=== PATIENT | male | born 1990 | race Hispanic/Latino ===

== ENCOUNTER 2019-04-11 02:53 | Emergency (ER) | payer SELFPAY ==
[2017-09-10 10:37] VITALS: BMI 28.9
[2019-04-11 02:54] VITALS: BP 163/86; PULSE 118; RESP 18; TEMP 36.6; O2SAT 98; BMI 28.3
--- NOTE | 2019-04-11 04:19 | ED.VISSUMM ---
- ER Visit Summary Date of Service: 04/11/19 Chief Complaint: Sore throat History of Present Illness: The patient is a 29 M who presents with sore throat and fever that is been getting worse over the past 2 days. Patient describes the pain is sharp. Patient states the pain is worse with swallowing. Patient also admits to headache and myalgias that are worse in his feet. Patient admits to a fever at home. Patient denies any cough. Patient denies any sick contacts. Patient denies any chest pain or shortness of breath. Patient denies any nausea or vomiting. Physical Examination: Vital signs are stable. Patient is afebrile. Patient is in no acute distress. Oral mucosa is pink and moist. Oropharynx is erythematous. There are exudates on the tonsils bilaterally. Neck is supple. Trachea is midline. There is tender anterior cervical lymphadenopathy. Heart was regular rate and rhythm. Lungs are clear and equal bilaterally. Abdomen is soft and nontender. Cranial nerves II through XII are intact. There are no focal motor or sensory deficits noted. Emergency Department Course and Treatment: Patient met 4 out of 4 Centor criteria. She was given his first dose of Pen-Vee K here. Patient was given a prescription for Pen-Vee K. Patient was instructed to take Tylenol or ibuprofen as needed for any fevers. Patient was instructed to follow-up with his primary care physician in 5 to 7 days. Patient understood and was agreeable with the plan. All questions were answered. Disposition: Discharge home Impression: Strep pharyngitis This note was generated with [employer] dictation software. It may contain incorrect words, spelling, and punctuation that were not noted in review of the chart prior to signing ED Disposition - Plan for ED Patient: Disposition: Home or Assisted Living Diagnosis: Strep pharyngitis Instructions: PHARYNGITIS, Strep (Confirmed) Prescriptions: Penicillin V Potassium 500 mg PO 4X/DAY #40 tab Prescription Printed Referrals: NOT,DEFINED [Primary Care Provider] - 5-7 Days
[2019-04-11 04:24] VITALS: BP 132/88; PULSE 112; RESP 15; O2SAT 97
[2019-04-11] MEDS: Penicillin Vk 250 MG Tablet 500 MG PO (04:24)
== END 2019-04-11 04:35 | disposition home or self-care (01) ==
LOC: ED 04:35
PROVIDERS: Emergency Provider Emergency Medicine
DX: J02.0 Streptococcal pharyngitis (principal); M79.10 Myalgia, unspecified site
CPT/HCPCS: 99283

== ENCOUNTER 2025-07-31 12:12 | Emergency (ER) | payer OTHER, SELFPAY ==
[2025-07-31 12:13] VITALS: BP 149/101; PULSE 87; RESP 16; TEMP 36.6; O2SAT 97; BMI 28.3
--- NOTE | 2025-07-31 12:18 | ED.RN ---
called Maisha with corporate care at [phone]
--- NOTE | 2025-07-31 13:32 | EDS_ITS ---
HPI History of Present Illness Chief Complaint: Laceration Informant: patient Narrative Narrative: Patient is a 35-year-old male presenting to the ED with a laceration on the right hand. 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 - Denies numbness in fingers. - Uncertain about tetanus vaccination status; last known vaccination possibly during childhood. - Works full-time at [employer] for 10 years. - [employer] services were used for this visit. Tetanus Immunization: >10 years [facility] Medical History Non-smoker Migraines Home Medications ?Medication ?Instructions ?Recorded ?Last Taken ?Type penicillin V potassium 500 mg 500 mg PO 4X/DAY #40 tab s 04/11/19 Unknown Rx tablet cefadroxil 500 mg capsule 500 mg PO BID #10 caps 07/31 Unknown Rx Allergy/AdvReac Type Severity Reaction Status Date / Time No Known Allergies Allergy Verified 07/31/25 12:12 Social History Smoking Status: Never smoker alcohol intake: never ROS ROS ED Constitutional Constitutional ED: Denies chills or fever(s) Musculoskeletal Musculoskeletal: Reports extremity pain; Denies neck pain Integumentary Reports laceration; Denies Abrasions, rash or wounds Neurologic Neurologic: Denies paresthesias or weakness EXAM Physical Exam Const Vital Signs: 07/31/25 12:13 Temperature 97.8 F Temperature Source Temporal Pulse Rate 87 Respiratory Rate 16 Blood Pressure 149/101 H Blood Pressure Mean 117 Pulse Ox 97 Oxygen Delivery Method Room Air Positive well nourished and well developed General Appearance ED: well developed and NAD Neck full ROM and supple Back/Spine normal ROM and normal to inspection Extremity full ROM Extremity Narrative: 5 cm laceration across the palmar aspect of the right hand, toward the base and to the ulnar side. No bone is exposed, he has full function of FDS FDP and extensor of all 4 digits, there is no rotational abnormalities and no dorsal bony tenderness. He can move the wrist without limitation or difficulty. Neuro oriented x3, no focal motor deficits and no sensory deficits noted Sensorium / Orientation: alert Psych mental status grossly normal and thought process normal Skin Skin Narrative: Right hand laceration no other injuries Rashes: no rashes MDM MDM MDM Narrative Medical decision making narrative: Assessment: The patient is a 35-year-old male presenting for a right hand laceration sustained while cutting meat with a knife. After local anesthesia, the wound was explored and tracked to the flexor digitorum superficialis of the little finger without tendon injury; full function is intact. This is most consistent with a deep laceration without foreign body. Plan: - Local anesthesia administered; right hand laceration explored and repaired. - Administered tetanus-diphtheria vaccine. - Prescribed Duricef twice daily for 5 days as prophylactic antibiotic coverage given depth of the wound and knife that is potentially contaminated due to use on animals. - Provided one day off work and issued appropriate work restrictions; advised follow-up with [facility]. - Patient discharged in stable condition. Portions of this note were generated using voice recognition software ([employer]). I have reviewed the contents and every effort has been made to ensure accuracy; however, inadvertent errors in grammar, spelling, punctuation, or word choice may occur, that were not noted before signing the document and should not alter the intended clinical meaning. Procedures Lacerations R hand: Length: 5 cm Depth: Muscle Shape: Linear Prep: Sterile Conditions and Chlorhexadine Laceration repair: Irrigated, Lidocaine (5cc, 1%), Local and Skin sutures Irrigated (ml): 120 Number of Sutures/[place]: 11 Suture Information: Ethilon, Simple and 4-0 Discharge Plan Triage Chief Complaint: Laceration ED Provider: Jose Raul Irving Dx/Rx/DC Orders Clinical Impression: Laceration of hand, right, Immunization, tetanus-diphtheria Instructions: Tdap Vaccine, ED Hand Laceration- All Closures Prescriptions: New cefadroxil 500 mg capsule 500 mg PO BID Qty: 10 0RF No Action penicillin V potassium 500 MG tablet 500 mg PO 4X/DAY Qty: 40 0RF Stand Alone Forms: Work Status Form Primary Care Provider: Care Physician,No [facility] [[facility] Phys[facility], Medical] - As soon as possible Print Language: [place] Disposition Disposition: Home, Self Care
[2025-07-31] MEDS: Lidocaine 1% (20 ml mdv) 20 ML Vial INFILT (13:41)
[2025-07-31] MEDS: Lidocaine/Epi/Tetracaine 50 ML 1 APPLIC TOPICAL (13:41)
[2025-07-31 16:49] VITALS: BP 132/98; PULSE 69; RESP 18; TEMP 37.3; O2SAT 98
--- OUTSIDE RECORDS SUMMARY | 2025-07-31 19:09 | XMS RPT_ITS | CCD ---
Author Organization [employer] Results Test Name Value Interpretation Reference Range Facil ity CNOVon 01-24-2019 CNOV Office Visit ([facility] ) NEVINGENESIS Dow ([id number]) 1990 [facility] Date Time Provider Department 01/24/19 10:30 AM BEL QUINTERO) [facility] During your visit today, we recorded the following information about you: Temperature Pulse Respiration Blood pressure 98.3 degrees 76/minute 16/minute 134/86 Weight 71.7 kg Bel Quintero PA-C 01/24/2019 1:38 PM Signed Subjective HPI Patient presents with a chief complaint of right shoulder pain. He works in a [employer] and 4 days ago felt a pop in his shoulder area and has pain above the shoulder. He is able to lift the arm up above his head. No numbness or weakness. Sometimes radiates into his neck. No trauma to the area. He's been taking ibuprofen for 4 days without any relief. Review of Systems Musculoskeletal: Right shoulder pain All other systems reviewed and are negative. No past medical history on file. Current Outpatient Medications Medication Sig Dispense Refill - predniSONE (DELTASONE) 20 mg tablet Take 2 tablets by mouth once daily for 5 days. 10 tablet 0 - cyclobenzaprine (FLEXERIL) 10 mg tablet Take 1 tablet by mouth three times daily as needed for Muscle Spasm (will cause sedation). 21 tablet 0 No current facility-administered medications for this visit. No past surgical history on file. No family history on file. Social History Tobacco Use - Smoking status: Never Smoker - Smokeless tobacco: Never Used Substance Use Topics - Alcohol use: Not on file - Drug use: Not on file BP 134/86 Pulse 76 Temp 36.8 ?C (98.3 ?F) (Tympanic) Resp 16 Wt 71.7 kg (158 lb) Objective Physical Exam Constitutional: He is well-developed, well-nourished, and in no distress. Pt speak very little wallisian- friend with him translating. HENT: Head: Normocephalic and atraumatic. Cardiovascular: Normal rate, regular rhythm and normal heart sounds. Pulmonary/Chest: Effort normal and breath sounds normal. Musculoskeletal: Patient has no pain on palpation of the glenohumeral joint. He is tender on palpation of the trapezius and right paracervical musculature. No midline tenderness. He does have some spasm noted to the trapezius. He is able to lift his arm up above his head. No sign of shoulder dislocation. Radial pulse 2+. Normal hand grasp strength. Neurological: He is alert. Skin: Skin is warm and dry. Nursing note and vitals reviewed. ASSESSMENT/PLAN: 1. Strain of right trapezius muscle, initial encounter - ICD9: 840.8, ICD10: S46.811A Patient's exam consistent with a right trapezius strain. I did place him on prednisone and given Flexeril. Discussed if not better over the next 1-2 weeks to follow up with primary care provider. Patient's family friend translates this to him and he understands. Bel Quintero PA-C Referring Provider: SELF [[id number]] Allergies As of Date: 01/24/2019 (No Known Allergies) Date Reviewed: 01/24/2019 Reviewed by: Fadia Mcwilliams Ma - Fully Assessed Reason for Visit: Pain (Shoulder Pain) [1343] Cmt: right x 4 days, denies injury Primary Visit Diagnosis:Strain of right trapezius muscle, initial encounter [S46.811A] Order(s):predniSONE (DELTASONE) 20 mg tabletTake 2 tablets by mouth once daily for 5 days.Disp: 10 tabletRfl: 0 cyclobenzaprine (FLEXERIL) 10 mg tabletTake 1 tablet by mouth three times daily as needed for Muscle Spasm (will cause sedation).Disp: 21 tabletRfl: 0 Prescriptions as of 01/24/2019 Sig: PREDNISONE 20 MG TABLET Take 2 tablets by mouth once * CYCLOBENZAPRINE 10 MG TABLET Take 1 tablet by mouth three * Problem List As Of Date: 01/24/2019 (None) Prescriptions ordered this encounter Disp Refills Start End PREDNISONE 20 MG TABLET 10 t* 0 01/24/2019 01/29/2019 Route: ORAL Sig: Take 2 tablets by mouth once daily for 5 days. CYCLOBENZAPRINE 10 MG TABLET 21 t* 0 01/24/2019 Route: ORAL Sig: Take 1 tablet by mouth three times daily as needed for Muscle Spasm (will cause sedation). Letter Text Encounter Status:Closed by BEL QUINTERO PA-C on 01/24/19 [facility] PROGRESSon 01-24-2019 Protein mass conc HNO ID: [id number] Author: Bel Quintero (Pa) Service: ? Author Type: Physician Valve Repairer Type: Progress Notes Filed: 01/24/2019 1:38 PM Note Text: Subjective HPI Patient presents with a chief complaint of right shoulder pain. He works in a [employer] house and 4 days ago felt a pop in his shoulder area and has pain above the shoulder. He is able to lift the arm up above his head. No numbness or weakness. Sometimes radiates into his neck. No trauma to the area. He's been taking ibuprofen for 4 days without any relief. Review of Systems Musculoskeletal: Right shoulder pain All other systems reviewed and are negative. No past medical history on file. Current Outpatient Medications Medication Sig Dispense Refill - predniSONE (DELTASONE) 20 mg tablet Take 2 tablets by mouth once daily for 5 days. 10 tablet 0 - cyclobenzaprine (FLEXERIL) 10 mg tablet Take 1 tablet by mouth three times daily as needed for Muscle Spasm (will cause sedation). 21 tablet 0 No current facility-administered medications for this visit. No past surgical history on file. No family history on file. Social History Tobacco Use - Smoking status: Never Smoker - Smokeless tobacco: Never Used Substance Use Topics - Alcohol use: Not on file - Drug use: Not on file BP 134/86 Pulse 76 Temp 36.8 ?C (98.3 ?F) (Tympanic) Resp 16 Wt 71.7 kg (158 lb) Objective Physical Exam Constitutional: He is well-developed, well-nourished, and in no distress. Pt speak very little wallisian- friend with him translating. HENT: Head: Normocephalic and atraumatic. Cardiovascular: Normal rate, regular rhythm and normal heart sounds. Pulmonary/Chest: Effort normal and breath sounds normal. Musculoskeletal: Patient has no pain on palpation of the glenohumeral joint. He is tender on palpation of the trapezius and right paracervical musculature. No midline tenderness. He does have some spasm noted to the trapezius. He is able to lift his arm up above his head. No sign of shoulder dislocation. Radial pulse 2+. Normal hand grasp strength. Neurological: He is alert. Skin: Skin is warm and dry. Nursing note and vitals reviewed. ASSESSMENT/PLAN: 1. Strain of right trapezius muscle, initial encounter - ICD9: 840.8, ICD10: S46.811A Patient's exam consistent with a right trapezius strain. I did place him on prednisone and given Flexeril. Discussed if not better over the next 1-2 weeks to follow up with primary care provider. Patient's family friend translates this to him and he understands. Bel Quintero PA-C [facility] Summary Purpose Family History No Family History Records Found Advance Directives No Advanced Directives Records Found Additional Source Comments (unrecognized sect ion and content) No Status Records Found INFORMATION SOURCE (unrecogn ized section and content) DATE CREATED AUTHOR 2019 [facility] FOR RECORDS PERTAINING TO PATIENTS WHO ARE OR HAVE BEEN ENROLLED IN A CHEMICAL DEPENDENCY/SUBSTANCEABUSE PROGRAM, SOME INFORMATION MAY BE OMITTED. This clinical summary was aggregated from multiple sources. Caution should be exercised in using it in the provision of clinical care. This summary normalizes information from multiple sources, and as a consequence, information in this document may materially change the coding, format and clinical context of patient data. In addition, data may be omitted in some cases. CLINICAL DECISIONS SHOULD BE BASED ON THE PRIMARY CLINICAL RECORDS. [employer] provides no warranty or guarantee of the accuracy or completeness of information in this document.
== END 2025-07-31 17:04 | disposition home or self-care (01) ==
PROVIDERS: Emergency Provider Emergency Medicine; Visit Provider Emergency Medicine
DX: S61.411A Laceration without foreign body of right hand, initial encounter (principal); W26.0XXA Contact with knife, initial encounter; Y93.G1 Activity, food preparation and clean up; Y92.89 Other specified places as the place of occurrence of the external cause; Y99.0 Civilian activity done for income or pay; Z23 Encounter for immunization
CPT/HCPCS: 12002; 90715; 96372; 99284